=== PATIENT | female | born 1985 | race Caucasian/White ===

== ENCOUNTER 2022-05-01 15:44 | Emergency (ER) | payer OTHER ==
[2022-05-01 16:09] VITALS: BP 107/75; PULSE 63; RESP 18; TEMP 98.2; BMI 27.3
[2022-05-01] MEDS ORDERED: IBUPROFEN 600 MG TABLET (FP) PO ONE ×2 (17:38→17:43)
== END 2022-05-01 18:42 | disposition home or self-care (01) ==
LOC: JERFT 15:44
DX: S93.492A Sprain of other ligament of left ankle, initial encounter (principal); X50.0XXA Overexertion from strenuous movement or load, initial encounter
CPT/HCPCS: 73610-TC-LT-FY; 73630-TC-LT; 99284-25